=== PATIENT | male | born 1935 | race Caucasian/White ===

== ENCOUNTER → 2016-11-12 | Day surgery (SDC) | payer OTHER ==
[2016-11-04 10:07] VITALS: Ht 167.6 cm; Wt 86.4 kg
[~2016-11-12] VITALS: Ht 167.6 cm; Wt 86.4 kg
[~2016-11-12] MED LIST: ACETAMINOPHEN 325 MG TAB PO PRN; AMLO2.5T PO; ASPI81TA28 PO; ATOR10TA82 PO; AcetaZOLAMIDE 250 MG TAB PO SCH; BETAXOLOL HCL 0.25% OP SUSP PER DROP CHARGE OPR SCH; BRIMONIDINE TART 0.2% OP SOLN PER DROP CHARGE ONE; CHOL100010 PO; CYCLOPENTOLATE HCL 1% OP SOLN PER DROP CHARGE OPR SCH; EpINEphrine INJ 1MG/ML AMP 1 MG/ML AMP ONE; FINA5TAB4 PO; FRS/40 PO; GLC500 PO; LACTATED RINGER'S 1000ML 500 ML IV SCH; LEVE500T13 PO; LEVO50TA PO; LIDOCAINE 4% OP SOLN DROP CHARGE ONE; LIDOCAINE 4% OP SOLN DROP CHARGE OPR SCH; LIDOCAINE HCL 1% MPF 2 ML VIAL ONE; MIDAZOLAM HCL 1 MG/ML 2ML VIAL ONE; MISCCAP80 PO; MOXIFLOXACIN OPH SOLN PER DROP CHARGE ONE; MOXIFLOXACIN OPH SOLN PER DROP CHARGE OPR SCH; OMEG10007 PO; PHENYLEPHRINE HCL 2.5% OP SOLN PER DROP CHARGE OPR SCH; POVIDONE-IODINE OP SOLN 30 ML BTL ONE; PROPARACAINE 0.5% OP SOLN PER DROP CHARGE OPR SCH; ROPI1TAB PO; SENN-61 PO; TERA5CAP PO; TOBRAMYCIN/DEXAMETHASONE OPH OINT PER APPLN CHARGE ONE; TRAZ50TA35 PO; TROPICAMIDE 1% OP SOLN PER DROP CHARGE OPR SCH
--- NOTE | 2016-11-12 07:56 | History & Physical Bridge - SC ---
H&P Re-Evaluation Bridge Note: I have examined the patient, reviewed the History & Physical and in the interval since the performance of the History & Physical I have noted the following changes of clinical significance: No changes noted
[2016-11-12 08:50] VITALS: BP 175/78; PULSE 70; TEMP 36.2
--- NOTE | 2016-11-12 10:51 | Anesthesiology Progress Note ---
Anesthesia Progress Note Date of Service Nov 12, 2016. Progress Notes The patient is an 81 y/o male scheduled for cataract surgery. On arrival his SpO2 was 83 on room air. It went up to 87 with deep breathing. The patient has a history of home oxygen use at night only for sleep apnea. His states that he is normally 90% on room air at home. The patient has no chest pain or SOB. He does not appear blue or cyanotic. He was hypertensive with BP 175/78 but other vitals were stable. The patient had his cataract surgery cancelled last March and had to be admitted for hypoxemia. I spoke to Dr. Manning's office about the patient and they stated that he should go to the ER. The patient was not happy that his surgery is being cancelled and that he needs to be worked up for his hypoxemia. The patient refused to go to the ER at [facility] but signed out against medical advice and has agreed to go to the [place] [facility]. I spoke to the charge nurse at the [place] [facility] about the patient.
== END | disposition home or self-care (01) ==
LOC: X.SURG 08:22
PROVIDERS: ATTEND Specialist
DX: H26.9 Unspecified cataract (principal); Z53.09 Procedure and treatment not carried out because of other contraindication; E11.9 Type 2 diabetes mellitus without complications

== ENCOUNTER → 2017-11-25 | Day surgery (SDC) | payer OTHER ==
[2017-10-16 14:59] LABS: HEMATOCRIT 35.9 % (42-52); HEMOGLOBIN 11.2 g/dL (14.0-18.0); MEAN CELL VOLUME 92.5 fL (80-100); MEAN CORPUSCULAR HEMOGLOBIN 28.9 pg (25-34); MEAN CORPUSCULAR HGB CONC 31.2 g/dl (32-36); MEAN PLATELET VOLUME 9.4 fL (7.4-10.4); PLATELET COUNT 190 K/uL (130-400); RED CELL DISTRIBUTION WIDTH CV 14.9 % (11.5-14.5); RED CELL DISTRIBUTION WIDTH SD 50.5 fL (36.4-46.3); WHITE BLOOD COUNT 6.31 K/uL (4.8-10.8)
[2017-10-16 15:09] LABS: CALCIUM 9.3 mg/dl (8.5-10.1); CREATININE 0.85 mg/dl (0.60-1.40); POTASSIUM 4.8 mmol/L (3.5-5.1)
--- NOTE | 2017-10-16 15:19 | DIAGNOSTIC IMAGING REPORT ---
CHEST PREADMISSION(PA/LAT) HISTORY: 82 years-old Male PREOP preoperative exam. No acute chest complaints. COMPARISON: None available TECHNIQUE: PA and lateral views of the chest FINDINGS: Cardiac silhouette is enlarged. Atherosclerosis of the aorta. Biapical pleural-parenchymal scarring with bilateral interstitial coarsening. Hazy opacities are noted at the level of the left lung base, best seen on the frontal projection. Pleural calcifications are noted. Lungs are mildly hypoinflated. Bones of the chest appear grossly intact. Cholecystectomy clips noted. IMPRESSION: 1. Cardiomegaly with interstitial coarsening, likely reflecting chronic changes with mild pulmonary edema also in the differential. 2. Hazy subsegmental left basilar opacity suggests atelectasis or pneumonitis. 3. Calcified pleural plaques. The above report was generated using voice recognition software. It may contain grammatical, syntax or spelling errors. Electronically signed by: Jose Watson M.D. 10/16/2017 3:18 PM Dictated Date/Time: 10/16/2017 3:13 PM
--- NOTE | 2017-10-16 16:06 | PAT Medication Instructions ---
Service Date Oct 16, 2017. Current Home Medication List Amlodipine (Norvasc), 2.5 MG PO QAM Aspirin (Aspirin Chewable), 81 MG PO QAM Atorvastatin (Lipitor), 10 MG PO HS Budesonide/Formoterol Fumarate (Symbicort 80/4.5 Inhaler), 1 PUFFS INH BID Cholecalciferol (Vitamin D), 1 TAB PO QAM Finasteride (Proscar), 5 MG PO QAM Fish Oil (Exeter-3), 1 CAP PO QAM Furosemide (Lasix), 40 MG PO QAM Home O2 Therapy (Oxygen), 2 LITERS NA cont Levetiracetam (Keppra), 500 MG PO BID Levothyroxine Sodium (Levothyroxine Sodium), 1 TAB PO QAM Probiotic Product (Probiotic), 1 CAP PO QAM Ropinirole Hydrochloride (Requip), 1 MG PO HS Senna (Senokot), 1 TAB PO DAILY PRN for Constipation Terazosin (Hytrin), 5 MG PO HS Trazodone Hcl (Trazodone), 50 MG PO HS Medication Instructions For Your Scheduled Surgery - Continue as directed: Home O2 Therapy (Oxygen), 2 LITERS NA cont - Hold the following medications starting 10/17/17: Fish Oil (Exeter-3), 1 CAP PO QAM - Hold the following medications 24 hours prior to surgery: Ropinirole Hydrochloride (Requip), 1 MG PO HS - Check with surgeon and prescribing physician for instructions: Aspirin (Aspirin Chewable), 81 MG PO QAM - Hold the following medications the morning of surgery: Cholecalciferol (Vitamin D), 1 TAB PO QAM Finasteride (Proscar), 5 MG PO QAM Furosemide (Lasix), 40 MG PO QAM Probiotic Product (Probiotic), 1 CAP PO QAM - Take the following medications the morning of surgery with a sip of water: Levetiracetam (Keppra), 500 MG PO BID Levothyroxine Sodium (Levothyroxine Sodium), 1 TAB PO QAM Budesonide/Formoterol Fumarate (Symbicort 80/4.5 Inhaler), 1 PUFFS INH BID Amlodipine (Norvasc), 2.5 MG PO QAM - Take the following medications as scheduled the night before surgery: Trazodone Hcl (Trazodone), 50 MG PO HS Terazosin (Hytrin), 5 MG PO HS Senna (Senokot), 1 TAB PO DAILY PRN for Constipation (if needed) Levetiracetam (Keppra), 500 MG PO BID Atorvastatin (Lipitor), 10 MG PO HS Budesonide/Formoterol Fumarate (Symbicort 80/4.5 Inhaler), 1 PUFFS INH BID If you have any questions please call us at [phone] or [phone] or [phone]
[2017-11-16 11:06] VITALS: Ht 167.6 cm; Wt 86.4 kg
[~2017-11-25] VITALS: Ht 167.6 cm; Wt 86.4 kg
[~2017-11-25] MED LIST changes: +500ML BSS 0.3ML EPI 1:1000PF IRRIG ONE; +AMVISC PLUS 0.8ML SYRINGE INT OCU ONE; +ASPCH81X PO; -ASPI81TA28 PO; +ATROPINE SULFATE 0.1 MG/ML 5ML SYR IV PRN; -BETAXOLOL HCL 0.25% OP SUSP PER DROP CHARGE OPR SCH; +BSS FLUSH ONE; +ENDOCOAT 0.85ML SYRINGE INT OCU ONE; +EpHEDrine SULFATE INJ 50 MG/ML AMP IV PRN; +FINA5TAB PO; -FINA5TAB4 PO; -GLC500 PO; -LEVO50TA PO; +LEVO50TA6 PO; -MIDAZOLAM HCL 1 MG/ML 2ML VIAL ONE; +MIX: 4ML BSS 1ML EPI 1:1000 PF INSTIL ONE; +OCUCOAT 1 ML SOLN IO ONE; +OXGN; +SYMIN/8045 INH
[2017-11-25] MEDS: PHENYLEPHRINE HCL 2.5% OP SOLN PER DROP CHARGE OPR SCH ×2 (08:36→08:43)
[2017-11-25] MEDS: TROPICAMIDE 1% OP SOLN PER DROP CHARGE OPR SCH ×2 (08:37→08:47)
[2017-11-25] MEDS: CYCLOPENTOLATE HCL 1% OP SOLN PER DROP CHARGE OPR SCH ×2 (08:38→08:42)
[2017-11-25] MEDS: MOXIFLOXACIN OPH SOLN PER DROP CHARGE OPR SCH ×2 (08:39→08:49)
--- NOTE | 2017-11-25 09:09 | [facility] Operative Report ---
Operative Report Date of Service Nov 25, 2017. Operative Report 1. PREOPERATIVE DIAGNOSIS: Senile nuclear cataract, right eye. 2. POSTOPERATIVE DIAGNOSIS: Senile nuclear cataract, right eye. 3. PROCEDURE: Phacoemulsification of right cataract with posterior chamber lens implant, type Bausch [employer] Lomb, model MX60E, power +21.5 diopters. ANESTHESIA: Local standby. SURGEON: Dr. Aguirre. COMPLICATIONS: None. OPERATING TIME: 10 minutes. 4. OPERATION AND FINDINGS: DESCRIPTION OF PROCEDURE: The right pupil was dilated. The anesthetic was administered using a topical technique. The right eye was prepped and draped. A speculum was placed. A clear corneal incision was formed. The chamber was filled with Amvisc Plus and Endocoat. Epinephrine solution was used. A paracentesis was placed. A capsulorrhexis was performed. The nucleus was hydrodissected. A dense lens was removed with phacoemulsification. Time was 5.19 seconds. The aspiration unit was used to remove the cortex. The capsule was filled with Amvisc Plus. The lens implant was folded and placed into the capsule. The incision was hydrated. The Amvisc was aspirated. The wound was secure. The chamber was deep. The pupil was round. Brimonidine, TobraDex ointment and Vigamox solution were placed. The speculum was removed. The patient was returned to the Recovery Room in stable condition. I attest to the content of the Intraoperative Record and any orders documented therein. Any exceptions are noted below. The scribe's documentation has been prepared in my presence, under my direction and personally reviewed by me in its entirety. I confirm that the note above accurately reflects all work, treatment, procedures, and medical decision making performed by me. I personally scribed for Raúl Aguirre M.D. ([email or web address]) on 11/25/17 at 09:09. Electronically submitted by Mini Lau ([email or web address]).
[2017-11-25 09:14] VITALS: TEMP 37
--- NOTE | 2017-11-25 09:14 | Discharge Instructions-SurgCtr ---
Discharge Instructions Date of Service Nov 25, 2017. Visit Reason for Visit: Cataract Right Eye Discharge Discharge Diagnosis / Problem: lens implant right eye Discharge Goals Goal(s): Improve function Activity Recommendations Activity Limitations: resume your previous activity Lifting Limitations: no more than 10 pounds Exercise/Sports Limitations: gradually increase as tolerated May Resume Sexual Activity: when tolerated Shower/Bathe: tomorrow Driving or Machine Use: resume 1 day after discharge Anesthesia . Post Anesthesia Instructions: If you have had General Anesthesia or IV Sedation: * Do not drive today. * Resume driving when surgeon permits. * Do not make important decisions or sign legal documents today. * Call surgeon for: 1. Temperature elevations greater than 101 degrees F. 2. Uncontrollable pain. 3. Excessive bleeding. 4. Persistent nausea and vomiting. 5. Medication intolerance (nausea, vomiting or rash). * For nausea and vomiting use only clear liquids such as: tea, soda, bouillon until nausea subsides, then gradually increase diet as tolerated. * If you have any concerns or questions, call your surgeon's office. If physician is unavailable and it is an emergency, call 911 or go to the nearest emergency room. . Instructions / Follow-Up Instructions / Follow-Up ACTIVITY RECOMMENDATIONS: * Light activities. * Mild irritation and blurred vision are common for the first few days. * You may walk outside, read, watch television. * Redness around the white part of the eye is common. MEDICATIONS: Resume previous medications unless instructed otherwise by your surgeon. * Take white Diamox (Acetazolamide) tablet at 1 pm today. Start all eye drops at 1 pm today: * Eye drops (today and tomorrow): Prednisone - one drop in operative eye every 3 hours while awake Ofloxacin - one drop in operative eye every 3 hours while awake SPECIAL CARE INSTRUCTIONS: * Tape plastic shield over eye to sleep at night. Call your doctor at with any concerns or problems. FOLLOW UP VISIT: Follow-up with Dr Aguirre at [facility] as scheduled. Diet Recommendations Home Diet: no limitations Procedures Procedures Performed: Right Cataract Phacoemulsification With Intraocular Lens Implant Pending Studies Studies pending at discharge: no Medical Emergencies . Who to Call and When: Medical Emergencies: If at any time you feel your situation is an emergency, please call 911 immediately. . Non-Emergent Contact Non-Emergency issues call your: Male Model Call Non-Emergent contact if: your pain is not controlled [phone] . . "Provider Documentation" section prepared by Raúl Aguirre. .
[2017-11-25 09:31] VITALS: BP 125/59; PULSE 62; O2SAT 96
--- NOTE | 2017-11-25 09:45 | Anesthesia Progress Nt - [facility] ---
Anesthesia Post Op Note Date & Time Nov 25, 2017 at 09:45 Vital Signs Pain Intensity: 0 Vital Signs Past 12 Hours Date Time Temp Pulse Resp B/P (MAP) Pulse Ox O2 Delivery O2 Flow Rate FiO2 11/25/17 09:31 62 16 125/59 (81) 96 Nasal Cannula 2 11/25/17 09:14 37.0 62 18 163/67 (99) 93 Nasal Cannula 2 11/25/17 08:21 36.1 66 24 169/66 (100) 94 Nasal Cannula 2 Notes Mental Status: alert / awake / arousable, participated in evaluation Pt Amnestic to Procedure: Yes Nausea / Vomiting: adequately controlled Pain: adequately controlled Airway Patency, RR, SpO2: stable & adequate BP & HR: stable & adequate Hydration State: stable & adequate Anesthetic Complications: no major complications apparent
== END | disposition home or self-care (01) ==
LOC: X.SURG 08:05
PROVIDERS: ATTEND Specialist
DX: E11.36 Type 2 diabetes mellitus with diabetic cataract (principal); H25.11 Age-related nuclear cataract, right eye; J45.909 Unspecified asthma, uncomplicated; I10 Essential (primary) hypertension; E78.00 Pure hypercholesterolemia, unspecified; Z88.5 Allergy status to narcotic agent; Z90.49 Acquired absence of other specified parts of digestive tract; Z79.82 Long term (current) use of aspirin; Z79.899 Other long term (current) drug therapy; Z87.891 Personal history of nicotine dependence

== ENCOUNTER → 2017-12-16 | Day surgery (SDC) | payer OTHER ==
[2017-12-08 09:05] VITALS: Ht 167.6 cm; Wt 86.4 kg
[~2017-12-16] VITALS: Ht 167.6 cm; Wt 86.4 kg
[~2017-12-16] MED LIST changes: -500ML BSS 0.3ML EPI 1:1000PF IRRIG ONE; -AMVISC PLUS 0.8ML SYRINGE INT OCU ONE; +BETAXOLOL HCL 0.25% OP SUSP PER DROP CHARGE OPL SCH; -BSS FLUSH ONE; -CYCLOPENTOLATE HCL 1% OP SOLN PER DROP CHARGE OPR SCH; -ENDOCOAT 0.85ML SYRINGE INT OCU ONE; -EpHEDrine SULFATE INJ 50 MG/ML AMP IV PRN; +LIDOCAINE 4% OP SOLN DROP CHARGE OPL SCH; -LIDOCAINE 4% OP SOLN DROP CHARGE OPR SCH; +MIDAZOLAM HCL 1 MG/ML 2ML VIAL ONE; -MIX: 4ML BSS 1ML EPI 1:1000 PF INSTIL ONE; -MOXIFLOXACIN OPH SOLN PER DROP CHARGE OPR SCH; -OCUCOAT 1 ML SOLN IO ONE; -PHENYLEPHRINE HCL 2.5% OP SOLN PER DROP CHARGE OPR SCH; +PROPARACAINE 0.5% OP SOLN PER DROP CHARGE OPL SCH; -PROPARACAINE 0.5% OP SOLN PER DROP CHARGE OPR SCH; -TROPICAMIDE 1% OP SOLN PER DROP CHARGE OPR SCH
[2017-12-16] MEDS: PHENYLEPHRINE HCL 2.5% OP SOLN PER DROP CHARGE OPL SCH ×2 (09:38→09:43)
[2017-12-16] MEDS: TROPICAMIDE 1% OP SOLN PER DROP CHARGE OPL SCH ×2 (09:39→09:44)
[2017-12-16] MEDS: CYCLOPENTOLATE HCL 1% OP SOLN PER DROP CHARGE OPL SCH ×2 (09:40→09:45)
[2017-12-16] MEDS: MOXIFLOXACIN OPH SOLN PER DROP CHARGE OPL SCH ×2 (09:41→09:51)
[2017-12-16] MEDS: LIDOCAINE HCL 1% MPF 2 ML VIAL ONE ×2 (10:20→10:29)
--- NOTE | 2017-12-16 10:31 | [facility] Operative Report ---
Operative Report Date of Service December 16, 2017. Operative Report 1. PREOPERATIVE DIAGNOSIS: Senile nuclear cataract, left eye. 2. POSTOPERATIVE DIAGNOSIS: Senile nuclear cataract, left eye. 3. PROCEDURE: Phacoemulsification of left cataract with posterior chamber lens implant, type Bausch [employer] Lomb, model MX60E, power +22.0 diopters. ANESTHESIA: Local standby. SURGEON: Dr. Aguirre. COMPLICATIONS: None. OPERATING TIME: 10 minutes. 4. OPERATION AND FINDINGS: DESCRIPTION OF PROCEDURE: The left pupil was dilated. The anesthetic was administered using a topical technique. The left eye was prepped and draped. A speculum was placed. A clear corneal incision was formed. The chamber was filled with Amvisc Plus and Endocoat. Epinephrine solution was used. A paracentesis was placed. A capsulorrhexis was performed. The nucleus was hydrodissected. The lens was removed with phacoemulsification. Time was 5.85 seconds. The aspiration unit was used to remove the cortex. The capsule was filled with Amvisc Plus. The lens implant was folded and placed into the capsule. The incision was hydrated. The Amvisc was aspirated. The wound was secure. The chamber was deep. The pupil was round. Brimonidine, TobraDex ointment and Vigamox solution were placed. The speculum was removed. The patient was returned to the Recovery Room in stable condition. I attest to the content of the Intraoperative Record and any orders documented therein. Any exceptions are noted below. The scribe's documentation has been prepared in my presence, under my direction and personally reviewed by me in its entirety. I confirm that the note above accurately reflects all work, treatment, procedures, and medical decision making performed by me. I personally scribed for Raúl Aguirre M.D. ([email or web address]) on 12/16/17 at 10:31. Electronically submitted by Mini Lau ([email or web address]).
--- NOTE | 2017-12-16 10:33 | Discharge Instructions-SurgCtr ---
Discharge Instructions Date of Service December 16, 2017. Visit Reason for Visit: Cataract Left Eye Discharge Discharge Diagnosis / Problem: lens implant left eye Discharge Goals Goal(s): Improve function Activity Recommendations Activity Limitations: resume your previous activity Lifting Limitations: no more than 10 pounds Exercise/Sports Limitations: gradually increase as tolerated May Resume Sexual Activity: when tolerated Shower/Bathe: tomorrow Driving or Machine Use: resume 1 day after discharge Anesthesia . Post Anesthesia Instructions: If you have had General Anesthesia or IV Sedation: * Do not drive today. * Resume driving when surgeon permits. * Do not make important decisions or sign legal documents today. * Call surgeon for: 1. Temperature elevations greater than 101 degrees F. 2. Uncontrollable pain. 3. Excessive bleeding. 4. Persistent nausea and vomiting. 5. Medication intolerance (nausea, vomiting or rash). * For nausea and vomiting use only clear liquids such as: tea, soda, bouillon until nausea subsides, then gradually increase diet as tolerated. * If you have any concerns or questions, call your surgeon's office. If physician is unavailable and it is an emergency, call 911 or go to the nearest emergency room. . Instructions / Follow-Up Instructions / Follow-Up ACTIVITY RECOMMENDATIONS: * Light activities. * Mild irritation and blurred vision are common for the first few days. * You may walk outside, read, watch television. * Redness around the white part of the eye is common. MEDICATIONS: Resume previous medications unless instructed otherwise by your surgeon. * Take white Diamox (Acetazolamide) tablet at 1 pm today. Start all eye drops at 1 pm today: * Eye drops (today and tomorrow): Prednisone - one drop in operative eye every 3 hours while awake Ofloxacin - one drop in operative eye every 3 hours while awake SPECIAL CARE INSTRUCTIONS: * Tape plastic shield over eye to sleep at night. Call your doctor at with any concerns or problems. FOLLOW UP VISIT: Follow-up with Dr Aguirre at [facility] as scheduled. Diet Recommendations Home Diet: no limitations Procedures Procedures Performed: Left Cataract Phacoemulsification With Intraocular Lens Implant Pending Studies Studies pending at discharge: no Medical Emergencies . Who to Call and When: Medical Emergencies: If at any time you feel your situation is an emergency, please call 911 immediately. . Non-Emergent Contact Non-Emergency issues call your: Windshield Wiper Repairer Call Non-Emergent contact if: your pain is not controlled [phone] . . "Provider Documentation" section prepared by Raúl Aguirre. .
[2017-12-16 10:37] VITALS: TEMP 36.4
--- NOTE | 2017-12-16 10:40 | Anesthesia Progress Nt - [facility] ---
Anesthesia Post Op Note Date & Time December 16, 2017 at 10:40 Vital Signs Pain Intensity: 0 Vital Signs Past 12 Hours Date Time Temp Pulse Resp B/P (MAP) Pulse Ox O2 Delivery O2 Flow Rate FiO2 12/16/17 09:47 192/84 (120) 12/16/17 09:19 36.5 64 18 189/114 (139) 98 Nasal Cannula 2 Notes Mental Status: alert / awake / arousable, participated in evaluation Pt Amnestic to Procedure: Yes Nausea / Vomiting: adequately controlled Pain: adequately controlled Airway Patency, RR, SpO2: stable & adequate BP & HR: stable & adequate Hydration State: stable & adequate Anesthetic Complications: no major complications apparent
[2017-12-16 11:00] VITALS: BP 115/73; PULSE 53; O2SAT 94
== END | disposition home or self-care (01) ==
LOC: X.SURG 08:29
PROVIDERS: ATTEND Specialist
DX: H25.12 Age-related nuclear cataract, left eye (principal); J44.9 Chronic obstructive pulmonary disease, unspecified; I10 Essential (primary) hypertension; I48.92 Unspecified atrial flutter; E11.9 Type 2 diabetes mellitus without complications; Z99.81 Dependence on supplemental oxygen; Z79.82 Long term (current) use of aspirin; Z88.5 Allergy status to narcotic agent